=== PATIENT | female | born 1980 | race Caucasian/White ===

== ENCOUNTER 2023-04-02 03:09 | Day surgery (SDC) | payer OTHER, SELFPAY ==
[2023-03-24 10:13] VITALS: BMI 30.9
[2023-04-02 10:42] VITALS: BP 109/81; PULSE 85; RESP 18; TEMP 36; O2SAT 100
--- NOTE | 2023-04-02 10:59 | P.PNAN_ITS ---
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 habits,Abnormal Findings Patient Data Age: 42 Gender: F Height: 1.7 m Weight: 87.3 kg Last Vital Signs Temp 96.8 F L 04/02/23 10:42 Pulse 85 04/02/23 10:42 Resp 18 04/02/23 10:42 BP 109/81 04/02/23 10:42 Pulse Ox 100 04/02/23 10:42 O2 Del Method Room Air 04/02/23 10:42 Allergies Allergy/AdvReac Type Severity Reaction Status Date / Time No Known Allergies Allergy Verified 04/02/23 10:44 Home Medications Medication Instructions Recorded Confirmed Type amitriptyline 75 mg tablet 75 mg PO QHS 02/23/23 03/24/23 History azelastine 137 mcg (0.1 %) nasal 137 mcg intranasal Q12H 02/23/23 03/24/23 History spray aerosol bupropion HCl 300 mg 24 hr tablet, 300 mg PO QAM 02/23/23 03/24/23 History extended release clonazepam 0.5 mg tablet 0.5 mg PO DAILY 02/23/23 03/24/23 History dicyclomine 10 mg capsule 10 mg PO BID 02/23/23 03/24/23 History estradiol 0.25 mg/0.25 gram (0.1 1 packet transdermal DAILY 02/23/23 03/24/23 History %) transdermal gel packet omeprazole 40 mg capsule,delayed 40 mg PO DAILY 02/23/23 03/24/23 History release ondansetron 4 mg disintegrating 4 mg PO Q6H 02/23/23 02/23/23 History tablet topiramate 50 mg capsule 50 mg PO DAILY PRN Migraine 02/23/23 03/24/23 History sprinkle,extended release 24 hr Headache Patient hx anesthesia problems: none Family hx anesthesia problems: none Results Review: All pre-operative results and documents have been reviewed as part of the pre-operative evaluation. [facility] Past Medical History Medical History (Updated 03/28/23 @ 16:18 by Becca Tang APRN) Abnormal digestive system diagnostic imaging Abnormal digestive system diagnostic imaging Change in bowel habits Hx of colonic polyps RLQ abdominal pain RUQ abdominal pain Social History Social History Smoking packs per day: 0.5 Smoking cigarettes per day: 10.0 Smoking status: Current every day smoker Alcohol intake: current Alcohol use details: socially Substance use: never Substance use type: does not use Living arrangements: with family Spiritual care concerns: No Anes - Eval Final PreProcedure Day of Procedure 04/02/23 10:59 Patient weight: obese Heart: regular rate and rhythm Lungs: clear to auscultation Airway: Mallampati scale class II Neurological: alert and oriented Last oral intake: >/= 8 hours ASA classification: II Emergent: no Anesthetic plan: proceed Anesthesia type and monitoring: general GIVS and standard monitoring Results Review: All pre-operative results and documents have been reviewed as part of the pre- operative evaluation. Informed Consent: The patient's anesthetic plan and its attendant risks and benefits were discussed with the patient/family/POA. Questions were solicited and answers provided to the satisfaction of the patient/family/POA.
[2023-04-02] MEDS: LACTATED RINGERS 1,000 ML 150 ML IV CONT (11:10)
--- NOTE | 2023-04-02 11:10 | PM.HPGS ---
History of Present Illness History of Present Illness Consent: Risks, benefits, and alternatives have been discussed and questions answered. Patient agrees to proceed with procedure. Chief complaint: RUQP,RLQP,change in bowel habits,Abnormal Findings Narrative: Daiana Smart is a 42 year old female presents for colonoscopy and EGD. Patient reports having cholecystectomy 10 years ago. Initially had loose stools after this was accomplished. Over the last year she has become constipated with bowel movements only every 5 days or so. Patient also notices occasional right upper quadrant abdominal pain attacks that are very similar to her previous gallbladder pain. Patient has a separate right lower quadrant sharp pain that is rather constant ongoing. Pain appears to intensify shortly after eating. This appears not to repeat related to her other right upper quadrant pain. Nor related to bowel habits. Patient is not found a laxative that helps her have bowel movements today. She did have good bowel movements and preparation for colonoscopy. She has not had any bleeding. She denies any weight loss. Family history noncontributory. Patient presents today for both colonoscopy EGD. Patient gives a distant history of having had polyps on previous exam. Patient has had recent imaging study that shows diffuse wall thickening of the colon . Review of Systems Review of Systems: Review of systems noncontributory. [facility] Past Medical History Medical History (Updated 02/23/23 @ 16:18 by Becca Tang APRN) Abnormal digestive system diagnostic imaging Abnormal digestive system diagnostic imaging Change in bowel habits Hx of colonic polyps RLQ abdominal pain RUQ abdominal pain Social History Social History Smoking packs per day: 0.5 Smoking cigarettes per day: 10.0 Smoking status: Current every day smoker Alcohol intake: current Alcohol use details: socially Substance use: never Substance use type: does not use Living arrangements: with family Spiritual care concerns: No Meds Home Medications and Allergies Home Medications Medication Instructions Recorded Confirmed Type amitriptyline 75 mg tablet 75 mg PO QHS 02/23/23 03/24/23 History azelastine 137 mcg (0.1 %) nasal 137 mcg intranasal Q12H 02/23/23 03/24/23 History spray aerosol bupropion HCl 300 mg 24 hr tablet, 300 mg PO QAM 02/23/23 03/24/23 History extended release clonazepam 0.5 mg tablet 0.5 mg PO DAILY 02/23/23 03/24/23 History dicyclomine 10 mg capsule 10 mg PO BID 02/23/23 03/24/23 History estradiol 0.25 mg/0.25 gram (0.1 1 packet transdermal DAILY 02/23/23 03/24/23 History %) transdermal gel packet omeprazole 40 mg capsule,delayed 40 mg PO DAILY 02/23/23 03/24/23 History release ondansetron 4 mg disintegrating 4 mg PO Q6H 02/23/23 02/23/23 History tablet topiramate 50 mg capsule 50 mg PO DAILY PRN Migraine 02/23/23 03/24/23 History sprinkle,extended release 24 hr Headache Allergies Allergy/AdvReac Type Severity Reaction Status Date / Time No Known Allergies Allergy Verified 04/02/23 10:44 Vital Signs Vital Signs - 24 hr 04/02/23 10:42 Temperature 96.8 F L Pulse Rate 85 Respiratory Rate 18 Blood Pressure 109/81 Pulse Oximetry 100 Oxygen Delivery Room Air Exam Narrative: Physical exam reveals patient to be alert. Vital signs stable. HEENT exam is unremarkable. Patient is anicteric. Lungs are clear to auscultation and percussion. Heart is without murmur or extra sounds. Abdomen bowel sounds present soft nontender with no organomegaly. Digital external rectal exam normal. Assessment and Plan Assessment and plan (1) Hx of colonic polyps: Code(s): Z86.010 - Personal history of colonic polyps Status: Acute Assessment and Plan: Because of patient's history of colon polyps as well as ongoing abdominal pain patient will undergo both colonoscopy an EGD.
--- NOTE | 2023-04-02 11:50 | SUR.OPER ---
EGD: [id number] COLON: [id number]
[2023-04-02 12:06] VITALS: BP 99/62; PULSE 78; RESP 19; O2SAT 100
[2023-04-02 12:16] VITALS: BP 108/74; PULSE 72; RESP 20; O2SAT 100
[2023-04-02 12:26] VITALS: BP 107/76; PULSE 73; RESP 14; O2SAT 100
== END 2023-04-02 12:35 | disposition home or self-care (01) ==
PROVIDERS: PCP Nurse Practitioner Family; Visit Provider Internal Medicine Gastroenterology
PROC: 0DJ08ZZ Inspection of Upper Intestinal Tract, Via Natural or Artificial Opening Endoscopic (ICD-10-PCS; CPT 43235; principal; 2023-04-02 11:00)
DX: R19.4 Change in bowel habit (principal); R10.31 Right lower quadrant pain; R10.11 Right upper quadrant pain; Z86.010 Personal history of colon polyps; F17.210 Nicotine dependence, cigarettes, uncomplicated; E66.9 Obesity, unspecified; Z68.30 Body mass index [BMI] 30.0-30.9, adult
CPT/HCPCS: 45380; 43235; 87081; 88305; J2704; J7120

== ENCOUNTER 2023-09-13 06:36 | Outpatient (CLI) | payer OTHER, SELFPAY ==
--- NOTE | ~2023-09-13 | MR_ITS ---
MRI of the lumbar spine Clinical History: Radiculopathy Technique: Axial T2-weighted images, and sagittal T1-weighted, T2-weighted, and T2 fat-sat images wer e acquired. Findings: There is no fracture or subluxation of the lumbar spine. Vertebral bodies maintain normal h eight and alignment. No suspicious bone marrow signal abnormality seen. At L1-L2 and L2-L3, there is no disc bulge or herniation. There are moderate facet joint degenerative changes at these levels. No spinal canal stenosis or neural foraminal narrowing at these levels. At L3-L4, there is minimal disc bulge with moderate to advanced facet arthropathy. No spinal canal st enosis or neural foraminal narrowing. At L4-L5, there is disc bulge and severe facet arthropathy. No madonna central canal stenosis. There is moderate to advanced left neural foraminal narrowing. There is minimal right neural foraminal narrow ing. At L5-S1, there is minimal disc bulge with mild facet arthropathy. No central canal stenosis or defin ite neural foraminal narrowing. Impression: Moderate degenerative spondylosis at L4-L5, as detailed above. Additional mild degenerative changes, as above. Reviewed, dictated and finalized at location . Impression: Moderate degenerative spondylosis at L4-L5, as detailed above. Additional mild degenerative changes, as above.
== END 2023-09-13 06:37 | disposition home or self-care (01) ==
PROVIDERS: PCP Nurse Practitioner Family; Visit Provider Nurse Practitioner Family
DX: F41.9 Anxiety disorder, unspecified (principal); M51.36 Other intervertebral disc degeneration, lumbar region; Z72.0 Tobacco use; M47.26 Other spondylosis with radiculopathy, lumbar region
CPT/HCPCS: 72148